=== PATIENT | female | born 1950 | race Hispanic/Latino ===

== ENCOUNTER 2019-08-08 11:11 | Emergency (ER) | payer OTHER, MEDICARE ==
[2019-08-08] MEDS ORDERED: DIAZEPAM 5 MG TABLET ONE (11:40)
[2019-08-08] MEDS ORDERED: KETOROLAC TROMETHAMINE 30MG/ML ONE (11:40)
[2019-08-08] MEDS ORDERED: LIDOCAINE 5% TOPICAL PATCH TP ONE (11:40)
== END 2019-08-08 12:50 | disposition home or self-care (01) ==
LOC: EDH 11:11
DX: M54.16 Radiculopathy, lumbar region (principal); I10 Essential (primary) hypertension; E11.9 Type 2 diabetes mellitus without complications; Z90.49 Acquired absence of other specified parts of digestive tract; Z72.0 Tobacco use
CPT/HCPCS: 96372; 99283; J1885

== ENCOUNTER → 2019-08-20 | Outpatient (CLI) | payer OTHER, MEDICARE | END | disposition home or self-care (01) | LOC: RAH 13:30 | PROVIDERS: ATTEND Neurological Surgery | DX: M47.812 Spondylosis without myelopathy or radiculopathy, cervical region (principal) | CPT/HCPCS: 72141 ==

== ENCOUNTER 2022-08-01 12:38 | Emergency (ER) | payer OTHER, MEDICARE ==
[~2022-08-01] VITALS: Ht 160 cm; Wt 70.8 kg
[2022-08-01 13:34] LABS: APPEARANCE,URINE CLEAR (CLEAR); BILIRUBIN,URINE NEGATIVE (NEGATIVE); COLOR,URINE YELLOW (YELLOW); GLUCOSE, URINE (UA) >=1000 mg/dL (NEGATIVE); KETONES,URINE NEGATIVE (NEGATIVE); LEUKOCYTE ESTERASE ,URINE NEGATIVE Leu/uL (NEGATIVE); NITRATE,URINE NEGATIVE (NEGATIVE); OCCULT BLOOD,URINE NEGATIVE (NEGATIVE); PH,URINE 5.5 (5.0-8.0); PROTEIN,URINE TRACE mg/dL (NEGATIVE); UROBILINOGEN,URINE 0.2 mg/dL (0.2-1.0)
[2022-08-01 14:05] LABS: RBC,URINE None Seen /HPF (0-1); WBC,URINE 0-1 /HPF (0-1)
[2022-08-01 14:06] LABS: BACTERIA,URINE Few /HPF (None Seen); YEAST,URINE BUDDING Moderate /HPF (None Seen)
[2022-08-01] MEDS ORDERED: KETOROLAC 30MG VIAL (30MG/ML) IM ONE (14:30)
[2022-08-01] MEDS ORDERED: LORAZEPAM 1 MG TABLET PO ONE (14:30)
[2022-08-01] MEDS ORDERED: ACET-66 PO (16:13)
[2022-08-01] MEDS ORDERED: TRAM50TA2 PO (16:13)
[2022-08-01] MEDS ORDERED: TIZA2CAP9 PO (16:13)
[2022-08-01 16:36] VITALS: BP 156/69
== END 2022-08-01 17:02 | disposition home or self-care (01) ==
LOC: EDH 12:38
DX: M54.12 Radiculopathy, cervical region (principal); M54.42 Lumbago with sciatica, left side; M19.90 Unspecified osteoarthritis, unspecified site; E11.9 Type 2 diabetes mellitus without complications; I10 Essential (primary) hypertension; Z98.890 Other specified postprocedural states; Z90.49 Acquired absence of other specified parts of digestive tract; Z79.899 Other long term (current) drug therapy; Z88.0 Allergy status to penicillin; Z88.5 Allergy status to narcotic agent; Z88.6 Allergy status to analgesic agent
CPT/HCPCS: 99284; 72125; 81001; 72131; 96372; J1885